=== PATIENT | female | born 1990 | race African-American/Black ===

== ENCOUNTER → 2016-12-14 | Outpatient (REF) | payer BC | LOC: M LAB REF 09:03 | PROVIDERS: ATTEND Physician Assistant | DX: Z02.1 Encounter for pre-employment examination (principal) ==

== ENCOUNTER 2017-02-10 15:28 | Emergency (ER) | payer BC ==
[~2017-02-10] VITALS: Ht 160 cm; Wt 104.3 kg
[2017-02-10] MEDS ORDERED: FLUO40CA (15:38)
[2017-02-10 17:16] LABS: MEAN CORPUSCULAR HEMOGLOBIN 29.8 pg (27.0-33.0); MEAN CORPUSCULAR HGB CONC 33.3 g/dl (32.0-36.5); MEAN CORPUSCULAR VOLUME 89.4 fl (80.0-96.0); RED CELL DISTRIBUTION WIDTH 12.1 % (11.5-14.5); WHITE BLOOD COUNT 9.5 K/mm3 (4.0-10.0)
[2017-02-10 17:28] LABS: CONTROL LINE HCG INT CTR LINE PRESENT
[2017-02-10 17:40] LABS: METHADONE URINE NEGATIVE (NEGATIVE)
[2017-02-10 17:44] LABS: ALBUMIN 3.8 GM/DL (3.2-5.2); ALBUMIN/GLOBULIN RATIO 1.09 (1.00-1.93); ALKALINE PHOSPHATASE 128 U/L (45-117); ALT/SGPT 23 U/L (12-78); ANION GAP 6 MEQ/L (8-16); AST/SGOT 20 U/L (15-37); BILIRUBIN,DIRECT < 0.1 MG/DL (0.0-0.2); BILIRUBIN,TOTAL 0.2 MG/DL (0.2-1.0); BLOOD UREA NITROGEN 9 MG/DL (7-18); CALCIUM LEVEL 8.8 MG/DL (8.5-10.1); CARBON DIOXIDE LEVEL 28 MEQ/L (21-32); CHLORIDE LEVEL 104 MEQ/L (98-107); CREATININE FOR GFR 0.83 MG/DL (0.55-1.02); GLOMERULAR FILTRATION RATE > 60.0 (>60); GLUCOSE, FASTING 90 MG/DL (70-105); POTASSIUM SERUM 3.9 MEQ/L (3.5-5.1); SODIUM LEVEL 138 MEQ/L (136-145); TOTAL PROTEIN 7.3 GM/DL (6.4-8.2)
[2017-02-10 18:38] VITALS: BP 135/76
== END 2017-02-10 18:39 | disposition home or self-care (01) ==
LOC: M ED 16:02
DX: F41.9 Anxiety disorder, unspecified (principal); F32.9 Major depressive disorder, single episode, unspecified; Z79.899 Other long term (current) drug therapy; Z88.1 Allergy status to other antibiotic agents
CPT/HCPCS: 36415; 80048; 80076; 80306; 84443; 84703; 85027; 99285; G0480

== ENCOUNTER → 2017-06-08 | Outpatient (CLI) | payer OTHER ==
[~2017-06-08] MED LIST: FLUO40CA
[2017-06-08 11:48] LABS: CONTROL LINE HCG INT CTR LINE PRESENT
[2017-06-08 11:49] LABS: MEAN CORPUSCULAR HEMOGLOBIN 29.5 pg (27.0-33.0); MEAN CORPUSCULAR HGB CONC 33.1 g/dl (32.0-36.5); RED CELL DISTRIBUTION WIDTH 12.6 % (11.5-14.5); WHITE BLOOD COUNT 7.2 K/mm3 (4.0-10.0)
[2017-06-08 12:14] LABS: ALBUMIN 3.5 GM/DL (3.2-5.2); ALBUMIN/GLOBULIN RATIO 1.03 (1.00-1.93); ALKALINE PHOSPHATASE 126 U/L (45-117); ALT/SGPT 22 U/L (12-78); ANION GAP 8 MEQ/L (8-16); AST/SGOT 16 U/L (15-37); BILIRUBIN,TOTAL 0.3 MG/DL (0.2-1.0); BLOOD UREA NITROGEN 14 MG/DL (7-18); CALCIUM LEVEL 9.1 MG/DL (8.5-10.1); CARBON DIOXIDE LEVEL 27 MEQ/L (21-32); CHLORIDE LEVEL 107 MEQ/L (98-107); CHOLESTEROL LEVEL 172 MG/DL (<200); CREATININE FOR GFR 0.75 MG/DL (0.55-1.02); FERRITIN 30 NG/ML (8-252); FREE T4 0.94 NG/DL (0.76-1.46); GLOMERULAR FILTRATION RATE > 60.0 (>60); GLUCOSE, FASTING 95 MG/DL (70-105); POTASSIUM SERUM 4.5 MEQ/L (3.5-5.1); SODIUM LEVEL 142 MEQ/L (136-145); TOTAL IRON BINDING CAPACITY 387 UG/DL (250-450); TOTAL PROTEIN 6.9 GM/DL (6.4-8.2); TRIGLYCERIDES LEVEL 60 MG/DL (<150)
[2017-06-10 10:38] LABS: VITAMIN B12 LEVEL 280 PG/ML (247-911)
== END ==
LOC: M WUC 08:24
PROVIDERS: ATTEND Registered Nurse
DX: E66.01 Morbid (severe) obesity due to excess calories (principal)

== ENCOUNTER → 2018-02-17 | Outpatient (CLI) | payer OTHER ==
[2018-02-17 12:21] LABS: ANION GAP 7 MEQ/L (8-16); BLOOD UREA NITROGEN 6 MG/DL (7-18); CALCIUM LEVEL 8.6 MG/DL (8.5-10.1); CARBON DIOXIDE LEVEL 28 MEQ/L (21-32); CHLORIDE LEVEL 107 MEQ/L (98-107); CREATININE FOR GFR 0.59 MG/DL (0.55-1.30); GLOMERULAR FILTRATION RATE > 60.0 (>60); GLUCOSE, FASTING 91 MG/DL (70-100); POTASSIUM SERUM 3.2 MEQ/L (3.5-5.1); SODIUM LEVEL 142 MEQ/L (136-145)
== END ==
LOC: M WUC 10:11
DX: E87.6 Hypokalemia (principal)

== ENCOUNTER → 2019-05-02 | Outpatient (CLI) | payer BC ==
[2019-05-02 18:51] LABS: BASO # 0.1 10^3/uL (0.0-0.2); BASO % 0.8 % (0.0-1.0); EOS # 0.2 10^3/uL (0.0-0.50); EOS % 3.7 % (0.0-3.0); HEMATOCRIT 42.6 % (36.0-47.0); HEMOGLOBIN 13.9 g/dl (12.0-15.5); LYMPH % 30.5 % (24.0-44.0); MEAN CORPUSCULAR HEMOGLOBIN 29.8 pg (27.0-33.0); MEAN CORPUSCULAR HGB CONC 32.6 g/dl (32.0-36.5); MEAN CORPUSCULAR VOLUME 91.2 fl (80.0-96.0); MONO # 0.6 10^3/uL (0.0-0.8); MONO % 8.6 % (0.0-5.0); NEUTROPHILS # 3.7 10^3/uL (1.8-7.7); NEUTROPHILS % 56.2 % (36.0-66.0); PLATELET COUNT, AUTOMATED 251 10^3/uL (150-450); RED BLOOD COUNT 4.67 10^6/uL (4.00-5.40); WHITE BLOOD COUNT 6.5 10^3/uL (4.0-10.0)
[2019-05-02 19:03] LABS: APPEARANCE, URINE HAZY (CLEAR); BACTERIA, URINE AUTO 1+ (NEGATIVE); BILIRUBIN, URINE AUTO NEGATIVE (NEGATIVE); BLOOD, URINE BLOOD 1+ (NEGATIVE); COLOR, URINE YELLOW (YELLOW); GLUCOSE, URINE (UA) AUTO NEGATIVE (NEGATIVE); KETONE, URINE AUTO NEGATIVE (NEGATIVE); LEUKOCYTE ESTERASE, URINE AUTO TRACE (NEGATIVE); MUCUS, URINE SMALL (NEGATIVE); NITRITE, URINE AUTO NEGATIVE (NEGATIVE); PROTEIN, URINE AUTO NEGATIVE (NEGATIVE); RBC, URINE AUTO 4 /HPF (0-3); SPECIFIC GRAVITY URINE AUTO 1.018 (1.002-1.035); SQUAMOUS EPITHELIAL CELL UR AU 8 /HPF (0-6); UROBILINOGEN, URINE AUTO 0.2 mg/dL (0.0-2.0); WBC, URINE AUTO 1 /HPF (0-3)
[2019-05-02 19:10] LABS: HEMOGLOBIN A1c 5.1 %
[2019-05-02 19:13] LABS: ALBUMIN 3.7 GM/DL (3.2-5.2); ALT/SGPT 25 U/L (12-78); BILIRUBIN,TOTAL 0.4 MG/DL (0.2-1.0); BLOOD UREA NITROGEN 9 MG/DL (7-18); CALCIUM LEVEL 8.8 MG/DL (8.5-10.1); CARBON DIOXIDE LEVEL 27 MEQ/L (21-32); CHLORIDE LEVEL 106 MEQ/L (98-107); CHOLESTEROL LEVEL 161 MG/DL (<200); CHOLESTEROL RISK RATIO 2.037 (<5); CREATININE FOR GFR 0.59 MG/DL (0.55-1.30); FREE T4 0.85 NG/DL (0.76-1.46); GLOMERULAR FILTRATION RATE > 60.0 (>60); GLUCOSE, FASTING 86 MG/DL (70-100); HDL CHOLESTEROL 79 MG/DL (>40); LDL CHOLESTEROL 73 MG/DL (<100); NON-HDL-C 82 MG/DL; SODIUM LEVEL 141 MEQ/L (136-145); TRIGLYCERIDES LEVEL 45 MG/DL (<150)
[2019-05-04 11:23] LABS: TOTAL 25(OH) VITAMIN D 25.1 NG/ML (30.0-100.0)
[2019-05-06 00:06] LABS: Lyme Disease IgG/IgM Antibodie <0.91 ISR (0.00-0.90); Lyme Disease IgM Ab Quantitati <0.80 index (0.00-0.79)
== END ==
LOC: M WUC 08:28
PROVIDERS: ATTEND Family Medicine
DX: Z13.228 Encounter for screening for other metabolic disorders (principal)

== ENCOUNTER → 2019-05-25 | Outpatient (CLI) | payer BC ==
--- NOTE | 2019-05-26 16:18 | REPMRS ---
Patient History The patient states she had a clinical breast exam in April 2019.Patient is nulliparous. Family history of pancreatic cancer in maternal grandmother. Taking hormonal contraceptives for 2 years 6 months. denied, patient shielded. 3D TOMOSYNTHESIS WAS PERFORMED. [facility] lifetime risk for breast cancer is 15.6%. Digital Mammo Screening Bilat: May 25, 2019 - Exam #: [id number] Bilateral CC and MLO view(s) were taken. Technologist: Mariaa Keller, Technologist No prior studies available for comparison. FINDINGS: The breast tissue is heterogeneously dense. This may lower the sensitivity of mammography. There is no evidence of cancer on this mammogram. Assessment: BI-RADS/ACR category 2 mammogram. Benign Findings. Recommendation Routine screening mammogram of both breasts in 1 year (for women over age 40). This mammogram was interpreted with the aid of an FDA-approved computer-aided dectection system. Electronically Signed By: Luis Enrique Fernández MD 05/26/19 [id number]
== END ==
LOC: M RAD 14:14
PROVIDERS: ATTEND Family Medicine
DX: Z12.31 Encounter for screening mammogram for malignant neoplasm of breast (principal); M54.2 Cervicalgia; M54.6 Pain in thoracic spine; Z79.3 Long term (current) use of hormonal contraceptives

== ENCOUNTER → 2019-09-05 | Outpatient (CLI) | payer BC ==
[2019-09-05 13:11] LABS: HEMATOCRIT 39.8 % (36.0-47.0); HEMOGLOBIN 12.6 g/dl (12.0-15.5); MEAN CORPUSCULAR HEMOGLOBIN 28.9 pg (27.0-33.0); MEAN CORPUSCULAR HGB CONC 31.7 g/dl (32.0-36.5); MEAN CORPUSCULAR VOLUME 91.3 fl (80.0-96.0); PLATELET COUNT, AUTOMATED 231 10^3/uL (150-450); RED BLOOD COUNT 4.36 10^6/uL (4.00-5.40); WHITE BLOOD COUNT 5.7 10^3/uL (4.0-10.0)
[2019-09-05 13:21] LABS: PERCENT SATURATION 28.3 % (13.2-45.0)
[2019-09-07 10:19] LABS: TOTAL 25(OH) VITAMIN D 26.8 NG/ML (30.0-100.0)
== END ==
LOC: M WUC 09:18
PROVIDERS: ATTEND Registered Nurse
DX: K91.2 Postsurgical malabsorption, not elsewhere classified (principal)

== ENCOUNTER → 2021-11-20 | Outpatient (CLI) | payer OTHER | LOC: M WUC 15:07 | PROVIDERS: ATTEND Surgery | DX: K91.2 Postsurgical malabsorption, not elsewhere classified (principal) ==

== ENCOUNTER 2022-07-25 23:49 | Inpatient (IN) | payer OTHER ==
[~2022-07-25] VITALS: Ht 160 cm; Wt 79.5 kg
[2022-07-26] MEDS ORDERED: ONDANSETRON 4MG 2ML VIAL IV ONE (00:40)
[2022-07-26] MEDS ORDERED: MORPHINE 4 MG/ML 1ML VIAL/SYRINGE IV ONE (00:40)
[2022-07-26] MEDS ORDERED: ISOVUE-370 76% 100ML VIAL As Ordered ONE (00:45)
[2022-07-26 00:51] LABS: BASO # 0.1 10^3/uL (0.0-0.2); BASO % 0.3 % (0.0-1.0); HEMATOCRIT 46.5 % (36.0-47.0); HEMOGLOBIN 15.1 g/dl (12.0-15.5); LYMPH # 1.2 10^3/uL (1.5-5.0); LYMPH % 6.4 % (24.0-44.0); MEAN CORPUSCULAR HEMOGLOBIN 29.3 pg (27.0-33.0); MEAN CORPUSCULAR HGB CONC 32.5 g/dl (32.0-36.5); MEAN CORPUSCULAR VOLUME 90.1 fl (80.0-96.0); MONO # 1.2 10^3/uL (0.0-0.8); MONO % 6.3 % (2.0-8.0); NEUTROPHILS # 16.2 10^3/uL (1.5-8.5); NEUTROPHILS % 86.5 % (36.0-66.0); PLATELET COUNT, AUTOMATED 307 10^3/uL (150-450); RED BLOOD COUNT 5.16 10^6/uL (4.00-5.40); WHITE BLOOD COUNT 18.8 10^3/uL (4.0-10.0)
[2022-07-26 02:31] LABS: ALBUMIN 4.5 GM/DL (3.2-5.2); ALT/SGPT 28 U/L (12-78); BILIRUBIN,DIRECT 0.3 MG/DL (0.0-0.2); BILIRUBIN,TOTAL 0.9 MG/DL (0.2-1.0); BLOOD UREA NITROGEN 7 MG/DL (7-18); CALCIUM LEVEL 9.7 MG/DL (8.5-10.1); CARBON DIOXIDE LEVEL 27 MEQ/L (21-32); CHLORIDE LEVEL 102 MEQ/L (98-107); CREATININE FOR GFR 0.78 MG/DL (0.55-1.30); GLOMERULAR FILTRATION RATE > 60.0 (>60); GLUCOSE, FASTING 135 MG/DL (70-100); LIPASE 57 U/L (73-393); POTASSIUM SERUM 3.6 MEQ/L (3.5-5.1); SODIUM LEVEL 136 MEQ/L (136-145); TOTAL PROTEIN 8.2 GM/DL (6.4-8.2)
[2022-07-26 02:39] LABS: HCG, SERUM QUALITATIVE NEGATIVE (NEGATIVE)
[2022-07-26 02:45] LABS: CK-MB VALUE MASS < 1.0 NG/ML (<3.6); CPK CREATINE PHOSPHOKINASE 46 U/L (26-192); MB/CK RELATIVE INDEX 2.17 (< OR =4)
[2022-07-26 08:03] LABS: CK-MB VALUE MASS < 1.0 NG/ML (<3.6); CPK CREATINE PHOSPHOKINASE 31 U/L (26-192); MB/CK RELATIVE INDEX 3.23 (< OR =4)
[2022-07-26 08:11] LABS: RSV AMPLIFICATION NEGATIVE (NEGATIVE)
[2022-07-26] MEDS ORDERED: cefTRIAXone SOD 1 GM in D5W MINI-BAG PLUS 50 ML IV ONE (08:35)
[2022-07-26] MEDS ORDERED: AZITHROMYCIN INJ 500 MG, VIAL MATE ADAPTER 1 EACH in NS 250 ML IV ONE (08:35)
[2022-07-26] MEDS ORDERED: ALBUTEROL SULFATE 2.5 MG/0.5 ML INH NEB SOLN NEB PRN (08:50)
[2022-07-26] MEDS ORDERED: OMEP40CA5 PO (08:53)
[2022-07-26] MEDS ORDERED: ERGO500029 PO (08:53)
[2022-07-26] MEDS ORDERED: CETI-24 PO (08:53)
[2022-07-26] MEDS ORDERED: VITA500T41 PO (08:53)
[2022-07-26] MEDS ORDERED: FLON1SPR NARES (08:53)
[2022-07-26] MEDS ORDERED: FLINCHW14 PO (08:53)
[2022-07-26] MEDS ORDERED: HOME MED LIST COMPLETE! XX SCH (08:55)
[2022-07-26] MEDS ORDERED: FLUoxetine 20MG CAP PO SCH (09:00)
[2022-07-26 09:44] LABS: INR 1.07; PROTHROMBIN TIME 14.3 SECONDS (12.7-14.5)
[2022-07-26 09:45] LABS: PARTIAL THROMBOPLASTIN TIME 29.7 SECONDS (25.9-37.0)
[2022-07-26] MEDS: OMEPRAZOLE 20MG CAP PO SCH (11:09)
[2022-07-26] MEDS ORDERED: ONDANSETRON 4MG TAB PO PRN (11:30)
[2022-07-26] MEDS: NS 1,000 ML IV SCH ×2 (11:36→21:00)
[2022-07-26] MEDS: ENOXAPARIN 40MG/0.4ML SYRINGE (J1650 PER 10MG) SC SCH (11:36)
[2022-07-26] MEDS ORDERED: KETOROLAC 30 MG/ML 1ML VIAL IV ONE (11:45)
[2022-07-26 17:45] VITALS: BP 143/89
[2022-07-26] MEDS: PERCOCET 5MG/325MG TAB PO PRN (20:21)
[2022-07-26] MEDS: DOXYCYCLINE HYCLATE 100MG TABLET PO SCH (20:21)
[2022-07-26 22:28] VITALS: BP 110/63
[2022-07-27] VITALS (9 sets, daily range): BP systolic 122–143; BP diastolic 78–87; O2SAT 95
[2022-07-27] MEDS: traMADol 50 MG TAB PO PRN ×2 (00:42→08:06)
[2022-07-27] MEDS ORDERED: DOCUSATE SODIUM 100MG CAPSULE PO PRN (01:50)
[2022-07-27 06:20] LABS: HEMATOCRIT 35.9 % (36.0-47.0); MEAN CORPUSCULAR HEMOGLOBIN 29.8 pg (27.0-33.0); MEAN CORPUSCULAR HGB CONC 32.6 g/dl (32.0-36.5); MEAN CORPUSCULAR VOLUME 91.3 fl (80.0-96.0); PLATELET COUNT, AUTOMATED 214 10^3/uL (150-450); RED BLOOD COUNT 3.93 10^6/uL (4.00-5.40); WHITE BLOOD COUNT 18.3 10^3/uL (4.0-10.0)
[2022-07-27 06:21] LABS: HEMOGLOBIN 11.7 g/dl (12.0-15.5)
[2022-07-27 06:45] LABS: ALBUMIN 2.9 GM/DL (3.2-5.2); ALT/SGPT 16 U/L (12-78); BILIRUBIN,TOTAL 0.7 MG/DL (0.2-1.0); BLOOD UREA NITROGEN 6 MG/DL (7-18); CALCIUM LEVEL 7.9 MG/DL (8.5-10.1); CARBON DIOXIDE LEVEL 24 MEQ/L (21-32); CHLORIDE LEVEL 106 MEQ/L (98-107); CREATININE FOR GFR 0.54 MG/DL (0.55-1.30); GLOMERULAR FILTRATION RATE > 60.0 (>60); GLUCOSE, FASTING 101 MG/DL (70-100); POTASSIUM SERUM 3.7 MEQ/L (3.5-5.1); SODIUM LEVEL 138 MEQ/L (136-145); TOTAL PROTEIN 5.7 GM/DL (6.4-8.2)
[2022-07-27] MEDS: ENOXAPARIN 40MG/0.4ML SYRINGE (J1650 PER 10MG) SC SCH (07:57)
[2022-07-27] MEDS: OMEPRAZOLE 20MG CAP PO SCH (08:06)
[2022-07-27] MEDS: DOXYCYCLINE HYCLATE 100MG TABLET PO SCH ×2 (08:06→20:31)
[2022-07-27] MEDS: cefTRIAXone SOD 1 GM in D5W MINI-BAG PLUS 50 ML IV SCH (08:06)
[2022-07-27] MEDS: PERCOCET 5MG/325MG TAB PO PRN (10:38)
[2022-07-27] MEDS ORDERED: MIDAZOLAM INJ 2MG/2ML VIAL (J2250 PER 1MG) As Ordered ONE (11:42)
[2022-07-27] MEDS ORDERED: ONDANSETRON 4MG 2ML VIAL As Ordered ONE (11:42)
[2022-07-27] MEDS ORDERED: dexameTHASONE 4 MG/ML 1ML VIAL (J1100 PER 1MG) As Ordered ONE (11:42)
[2022-07-27] MEDS ORDERED: fentaNYL 100 MCG/2 ML INJECTION As Ordered ONE (11:42)
[2022-07-27] MEDS ORDERED: ROCURONIUM BROMIDE 50 MG/5 ML VIAL As Ordered ONE (11:42)
[2022-07-27] MEDS ORDERED: LIDOCAINE 2% 100MG/5ML SDV (FOR ANES.) As Ordered ONE (11:42)
[2022-07-27] MEDS ORDERED: propofoL 200 MG/20 ML VIAL As Ordered ONE (11:42)
[2022-07-27] MEDS ORDERED: EPINEPHrine 1MG/10ML SYRINGE 1.5IN As Ordered ONE (12:10)
[2022-07-27] MEDS ORDERED: CETACAINE SPRAY 5GM As Ordered ONE (12:11)
[2022-07-27] MEDS ORDERED: THROMBIN SOLN 5,000 UNITS VIAL As Ordered ONE (12:11)
[2022-07-27] MEDS ORDERED: LIDOCAINE 1% MDV 20ML VIAL As Ordered ONE (12:36)
[2022-07-27] MEDS ORDERED: SUGAMMADEX SODIUM 500 MG/5 ML VIAL (BRIDION) As Ordered ONE (13:07)
[2022-07-27] MEDS: predniSONE 20 MG TAB PO SCH (15:15)
[2022-07-27] MEDS: ACETAMINOPHEN TAB 650MG DOSE (2X325MG) PO PRN (20:31)
[2022-07-28] MEDS: ACETAMINOPHEN TAB 650MG DOSE (2X325MG) PO PRN (05:40)
[2022-07-28 06:00] VITALS: BP 125/80
[2022-07-28 06:39] LABS: HEMATOCRIT 37.2 % (36.0-47.0); HEMOGLOBIN 11.9 g/dl (12.0-15.5); MEAN CORPUSCULAR HEMOGLOBIN 29.2 pg (27.0-33.0); MEAN CORPUSCULAR VOLUME 91.2 fl (80.0-96.0); PLATELET COUNT, AUTOMATED 218 10^3/uL (150-450); RED BLOOD COUNT 4.08 10^6/uL (4.00-5.40); WHITE BLOOD COUNT 19.5 10^3/uL (4.0-10.0)
[2022-07-28 07:12] LABS: ALBUMIN 2.7 GM/DL (3.2-5.2); ALT/SGPT 16 U/L (12-78); BILIRUBIN,TOTAL 0.3 MG/DL (0.2-1.0); BLOOD UREA NITROGEN 5 MG/DL (7-18); CALCIUM LEVEL 8.7 MG/DL (8.5-10.1); CARBON DIOXIDE LEVEL 28 MEQ/L (21-32); CHLORIDE LEVEL 105 MEQ/L (98-107); CREATININE FOR GFR 0.47 MG/DL (0.55-1.30); GLOMERULAR FILTRATION RATE > 60.0 (>60); GLUCOSE, FASTING 109 MG/DL (70-100); POTASSIUM SERUM 3.5 MEQ/L (3.5-5.1); SODIUM LEVEL 138 MEQ/L (136-145); TOTAL PROTEIN 6.1 GM/DL (6.4-8.2)
[2022-07-28] MEDS ORDERED: DOXY100T PO ×2 (07:50→10:01)
[2022-07-28] MEDS ORDERED: PROB1CAP10 PO ×2 (07:50→10:01)
[2022-07-28] MEDS ORDERED: CEFU50TA PO ×2 (07:50→10:01)
[2022-07-28] MEDS ORDERED: LACTULOSE 20 GM/30 ML SYRUP UD PO ONE (08:15)
[2022-07-28] MEDS ORDERED: PRED20TA PO ×2 (08:20→10:01)
[2022-07-28] MEDS ORDERED: SENN18TA PO ×2 (08:20→10:01)
[2022-07-28] MEDS ORDERED: COLA100C5 PO ×2 (08:20→10:01)
[2022-07-28] MEDS ORDERED: DOCUSATE SODIUM 100MG CAPSULE PO SCH (08:30)
[2022-07-28] MEDS: cefTRIAXone SOD 1 GM in D5W MINI-BAG PLUS 50 ML IV SCH (08:30)
[2022-07-28] MEDS: ENOXAPARIN 40MG/0.4ML SYRINGE (J1650 PER 10MG) SC SCH (08:31)
[2022-07-28] MEDS: OMEPRAZOLE 20MG CAP PO SCH (08:31)
[2022-07-28] MEDS: DOXYCYCLINE HYCLATE 100MG TABLET PO SCH (08:31)
[2022-07-28] MEDS: predniSONE 20 MG TAB PO SCH (08:31)
[2022-07-28 09:00] VITALS: O2SAT 98
[2022-07-28] MEDS ORDERED: SENNA 8.6 MG TAB (SENOKOT) PO SCH (21:00)
== END 2022-07-28 11:15 | disposition home or self-care (01) | DRG 194 ==
LOC: M ED 23:49 → M ED INP 07-26 08:42 → ENRESERV 07-26 16:29 → M MS5PR 07-26 17:35
PROVIDERS: ADMIT Internal Medicine; ATTEND Internal Medicine
PROC: 0B9J8ZX Drainage of Left Lower Lung Lobe, Via Natural or Artificial Opening Endoscopic, Diagnostic (ICD-10-PCS; principal; 2022-07-27 11:15)
DX: J18.9 Pneumonia, unspecified organism (principal); J98.11 Atelectasis; K59.00 Constipation, unspecified; K21.9 Gastro-esophageal reflux disease without esophagitis; F32.A Depression, unspecified; F41.9 Anxiety disorder, unspecified; Z79.899 Other long term (current) drug therapy; E53.8 Deficiency of other specified B group vitamins; D50.9 Iron deficiency anemia, unspecified

== ENCOUNTER → 2022-08-05 | Outpatient (REF) | payer OTHER ==
[~2022-08-05] MED LIST changes: +CEFU50TA PO; +CETI-24 PO; +COLA100C5 PO; +DOXY100T PO; +ERGO500029 PO; +FLINCHW14 PO; +FLON1SPR NARES; +OMEP40CA5 PO; +PRED20TA PO; +PROB1CAP10 PO; +SENN18TA PO; +VITA500T41 PO
== END ==
LOC: M LAB REF 19:30
PROVIDERS: ATTEND Internal Medicine
DX: B37.31 Acute candidiasis of vulva and vagina (principal)

== ENCOUNTER → 2022-09-25 | Outpatient (CLI) | payer OTHER | LOC: M RAD 16:54 | PROVIDERS: ATTEND Internal Medicine Pulmonary Disease | DX: R91.8 Other nonspecific abnormal finding of lung field (principal) ==

== ENCOUNTER → 2023-11-05 | Outpatient (CLI) | payer OTHER ==
[~2023-11-05] MED LIST changes: +SENN-111 PO; -SENN18TA PO
== END ==
LOC: M RAD 16:07
PROVIDERS: ATTEND Internal Medicine Pulmonary Disease
DX: R91.8 Other nonspecific abnormal finding of lung field (principal); J47.9 Bronchiectasis, uncomplicated; J98.11 Atelectasis; Z98.84 Bariatric surgery status

== ENCOUNTER 2024-02-11 11:13 | Observation (INO) | payer SELFPAY ==
[~2024-02-11] VITALS: Ht 162.6 cm; Wt 65.3 kg
[~2024-02-11 11:13] MED LIST changes: +BIOT1000 PO; +LIDOCAINE 2% 100MG/5ML SDV (FOR ANES.) As Ordered ONE; +MIDAZOLAM INJ 2MG/2ML VIAL As Ordered ONE; +ONDANSETRON 4MG 2ML VIAL As Ordered ONE; +ROCURONIUM BROMIDE 50MG/5ML VIAL As Ordered ONE; +SUGAMMADEX SODIUM 500 MG/5 ML VIAL (BRIDION) As Ordered ONE; +fentaNYL 250 MCG/5 ML INJECTION As Ordered ONE; +propofoL 200 MG/20 ML VIAL As Ordered ONE
[2024-02-11] MEDS: LR 1,000 ML IV SCH ×3 (12:01→18:46)
[2024-02-11] MEDS ORDERED: MULTTAB61 PO (13:05)
[2024-02-11] MEDS ORDERED: BIOT1CAP2 PO (13:05)
[2024-02-11] MEDS ORDERED: DOCU100C16 PO (13:05)
[2024-02-11] MEDS ORDERED: SENN-186 PO (13:05)
[2024-02-11] MEDS ORDERED: HOME MED LIST COMPLETE! XX SCH (13:10)
[2024-02-11] MEDS ORDERED: ACETAMINOPHEN 1000MG 100ML IV BAG As Ordered ONE (13:34)
[2024-02-11] MEDS: ceFAZolin SOD 2 GM in IV 1 EA IV ONE (13:45)
[2024-02-11] MEDS ORDERED: HYDROmorphone HCL 2MG/ML 1ML VIAL As Ordered ONE (13:56)
[2024-02-11] MEDS: HEPARIN SOD (PORCINE) 5000UNITS/ML 1ML VIAL/SYRINGE SQ ONE (14:03)
[2024-02-11] MEDS: GENTAMICIN SULF 80MG/2ML VIAL As Ordered ONE (15:17)
[2024-02-11] MEDS ORDERED: fentaNYL 100 MCG/2 ML INJECTION IV PRN (16:15)
[2024-02-11] MEDS ORDERED: ONDANSETRON 4MG 2ML VIAL IV PRN (17:10)
[2024-02-11] MEDS: HYDROMORPHONE HCL 0.5 MG/ 0.5 ML SYRINGE IV PRN (17:21)
[2024-02-11] MEDS: ONDANSETRON 4MG 2ML VIAL IV PRN (17:21)
[2024-02-11] MEDS: oxyCODONE 5MG TAB PO PRN (17:25)
[2024-02-11 18:30] VITALS: BP 122/66; TEMP 97.9; O2SAT 96
[2024-02-11 20:30] VITALS: BP 118/65; TEMP 97.2; O2SAT 97
[2024-02-11] MEDS: ACETAMINOPHEN TAB 650MG DOSE (2X325MG) PO PRN (21:17)
[2024-02-11] MEDS: ceFAZolin SOD 1 GM in D5W MINI-BAG PLUS 50 ML IV SCH (21:27)
[2024-02-11 21:30] VITALS: BP 108/58; TEMP 97.5; O2SAT 95
[2024-02-11] MEDS: traMADol 50 MG TAB PO PRN (21:32)
[2024-02-11 22:30] VITALS: BP 107/63; TEMP 97.3; O2SAT 97
[2024-02-11] MEDS: PERCOCET 5MG/325MG TAB PO PRN (22:56)
[2024-02-12] MEDS: diphenhydrAMINE 50MG/ML VIAL IV PRN (01:03)
[2024-02-12 02:30] VITALS: BP 106/62; TEMP 98.1; O2SAT 94
[2024-02-12 05:59] VITALS: BP 106/63; TEMP 97.7; O2SAT 98
[2024-02-12] MEDS ORDERED: TRAM50TA2 PO (12:11)
== END 2024-02-12 14:40 | disposition home or self-care (01) ==
LOC: M SDC 11:13 → M RR INP 11:14 → M MS5PR 18:10
PROVIDERS: ADMIT Plastic Surgery Surgery of the Hand; ATTEND Plastic Surgery Surgery of the Hand
DX: M54.07 Panniculitis affecting regions of neck and back, lumbosacral region (principal); M62.08 Separation of muscle (nontraumatic), other site; R63.4 Abnormal weight loss; Z98.84 Bariatric surgery status; Z88.1 Allergy status to other antibiotic agents
CPT/HCPCS: 15830; 15847; 81025; 88300; 96374; 96375; 96376; C9290; J0131; J0665; J0690; J1100; J1170; J1200; J1580; J2250; J2405; J3010

== ENCOUNTER → 2024-04-08 | Outpatient (CLI) | payer OTHER ==
[~2024-04-08] MED LIST changes: +BIOT1CAP2 PO; +DOCU100C16 PO; -LIDOCAINE 2% 100MG/5ML SDV (FOR ANES.) As Ordered ONE; -MIDAZOLAM INJ 2MG/2ML VIAL As Ordered ONE; +MULTTAB61 PO; -ONDANSETRON 4MG 2ML VIAL As Ordered ONE; -ROCURONIUM BROMIDE 50MG/5ML VIAL As Ordered ONE; +SENN-186 PO; -SUGAMMADEX SODIUM 500 MG/5 ML VIAL (BRIDION) As Ordered ONE; +TRAM50TA2 PO; -fentaNYL 250 MCG/5 ML INJECTION As Ordered ONE; -propofoL 200 MG/20 ML VIAL As Ordered ONE
[2024-04-08 11:27] LABS: HEPATITIS B SURFACE ANTIGEN NEGATIVE (NEGATIVE)
[2024-04-08 11:40] LABS: HIV 1&2 SCREEN NEGATIVE (NEGATIVE)
[2024-04-08 11:48] LABS: HEPATITIS B CORE ANTIBODY IGM NEGATIVE (NEGATIVE); HEPATITIS C VIRUS ABY INDEX < 0.02 INDEX (<0.8)
[2024-04-08 14:16] LABS: Trichomonas vaginalis (AMP) NOT DETECTED (NEGATIVE)
[2024-04-08 14:40] LABS: GC DNA AMPLIFICATION NEGATIVE (NEGATIVE)
== END ==
LOC: M PLALAB 08:40
PROVIDERS: ATTEND Nurse Practitioner Family
DX: Z11.4 Encounter for screening for human immunodeficiency virus [HIV] (principal); Z11.3 Encounter for screening for infections with a predominantly sexual mode of transmission

== ENCOUNTER 2024-09-02 08:36 | Emergency (ER) | payer BC, OTHER ==
[~2024-09-02] VITALS: Ht 160 cm; Wt 68.4 kg
[~2024-09-02 08:36] MED LIST changes: -SENN-111 PO; +SENN-165 PO
[2024-09-02] MEDS: ACETAMINOPHEN 500 MG TAB PO ONE (09:37)
[2024-09-02 10:19] LABS: HCG, SERUM QUALITATIVE NEGATIVE (NEGATIVE)
[2024-09-02 12:00] LABS: BASO # 0.1 10^3/uL (0.0-0.2); BASO % 0.4 % (0.0-1.0); EOS % 0.2 % (0.0-3.0); HEMATOCRIT 39.8 % (36.0-47.0); LYMPH # 1.4 10^3/uL (1.5-5.0); LYMPH % 8.8 % (24.0-44.0); MEAN CORPUSCULAR HEMOGLOBIN 28.4 pg (27.0-33.0); MEAN CORPUSCULAR HGB CONC 32.7 g/dl (32.0-36.5); MEAN CORPUSCULAR VOLUME 87.1 fl (80.0-96.0); MONO # 1.7 10^3/uL (0.0-0.8); MONO % 10.8 % (2.0-8.0); NEUTROPHILS # 12.5 10^3/uL (1.5-8.5); NEUTROPHILS % 79.4 % (36.0-66.0); PLATELET COUNT, AUTOMATED 311 10^3/uL (150-450); RED BLOOD COUNT 4.57 10^6/uL (4.00-5.40); WHITE BLOOD COUNT 15.8 10^3/uL (4.0-10.0)
[2024-09-02 12:35] LABS: BLOOD UREA NITROGEN 7 MG/DL (9-23); CALCIUM LEVEL 8.7 MG/DL (8.5-10.1); CARBON DIOXIDE LEVEL 28 MMOL/L (20-31); CHLORIDE LEVEL 102 MMOL/L (98-107); CREATININE FOR GFR 0.52 MG/DL (0.55-1.30); GLOMERULAR FILTRATION RATE > 60.0 (>60); GLUCOSE, FASTING 112 MG/DL (60-100); POTASSIUM SERUM 4.1 MMOL/L (3.5-5.1); SODIUM LEVEL 135 MMOL/L (136-145)
[2024-09-02 12:48] LABS: MONO REFLEX EBV COMP NEGATIVE (NEGATIVE)
[2024-09-02] MEDS ORDERED: ISOVUE-370 76% 100ML VIAL As Ordered ONE (12:58)
[2024-09-02] MEDS: cefTRIAXone SOD 1 GM in DEXTROSE 5% (D5W) ADV/MINI-BAG 50 ML IV ONE (14:36)
[2024-09-02] MEDS ORDERED: SULF1TAB23 PO (15:32)
[2024-09-02] MEDS ORDERED: FLUC150T9 PO (15:38)
[2024-09-02 15:41] VITALS: BP 106/57; TEMP 99.3; O2SAT 98
[2024-09-04 13:46] LABS: EBV AB TO NUCLEAR ANTIGEN > 600.00 U/mL (<18.00); EBV VIRAL CAPSID AG IGM < 36.00 U/mL (<36.00)
== END 2024-09-02 15:52 | disposition home or self-care (01) ==
LOC: M ED 08:36
DX: N10 Acute pyelonephritis (principal); Z88.1 Allergy status to other antibiotic agents; Z79.810 Long term (current) use of selective estrogen receptor modulators (SERMs); Z79.899 Other long term (current) drug therapy
CPT/HCPCS: 71046; 71275; 74177; 80048; 81001; 83605; 84703; 85025; 86308; 86664; 86665; 87040; 87088; 87186; 87486; 87581; 87633; 87798; 93005; 96365; 99284; J0696; Q9967

== ENCOUNTER → 2024-10-08 | Outpatient (CLI) | payer BC ==
[~2024-10-08] MED LIST changes: +FLUC150T9 PO; +SULF1TAB23 PO
[2024-10-08 12:15] LABS: LUTEINIZING HORMONE 5.5 mIU/ML; PROLACTIN 8.59 NG/ML
[2024-10-08 12:27] LABS: PROGESTERONE 0.49 NG/ML
[2024-10-08 12:28] LABS: ESTRADIOL 77.6 PG/ML; FOLLICLE STIMULATING HORMONE 6.3 mIU/ML
[2024-10-08 13:02] LABS: HEPATITIS B CORE ANTIBODY IGM NEGATIVE (NEGATIVE); HEPATITIS B SURFACE ANTIGEN NEGATIVE (NEGATIVE); HEPATITIS C VIRUS ABY INDEX < 0.02 INDEX (<0.8); HIV 1&2 SCREEN NEGATIVE (NEGATIVE)
[2024-10-08 13:30] LABS: Trichomonas vaginalis (AMP) NOT DETECTED (NEGATIVE)
[2024-10-08 13:54] LABS: GC DNA AMPLIFICATION NEGATIVE (NEGATIVE)
== END ==
LOC: M PLALAB 07:56
PROVIDERS: ATTEND Nurse Practitioner Family
DX: Z11.3 Encounter for screening for infections with a predominantly sexual mode of transmission (principal)

== ENCOUNTER → 2024-12-27 | Outpatient (REF) | payer BC ==
[2024-12-27 20:20] LABS: Trichomonas vaginalis (AMP) NOT DETECTED (NEGATIVE)
[2024-12-27 20:44] LABS: GC DNA AMPLIFICATION NEGATIVE (NEGATIVE)
== END ==
LOC: M LAB REF 19:06
PROVIDERS: ATTEND Student in an Organized Health Care Education/Training Program
DX: R30.0 Dysuria (principal)

== ENCOUNTER → 2025-01-19 | Outpatient (CLI) | payer BC | LOC: M RAD 15:24 | PROVIDERS: ATTEND Obstetrics & Gynecology | DX: N97.9 Female infertility, unspecified (principal) ==

== ENCOUNTER → 2025-08-07 | Outpatient (REF) | payer BC ==
[~2025-08-07] MED LIST changes: -BIOT1000 PO; +BIOT10002 PO; +HAIR1CHW2 PO; +NORG0.25 PO
[2025-08-07 20:33] LABS: Trichomonas vaginalis (AMP) NOT DETECTED (NEGATIVE)
[2025-08-07 20:56] LABS: GC DNA AMPLIFICATION NEGATIVE (NEGATIVE)
== END ==
LOC: M WUC 19:01
PROVIDERS: ATTEND Physician Assistant Medical
DX: B37.31 Acute candidiasis of vulva and vagina (principal); R30.0 Dysuria